=== PATIENT | female | born 1985 | race Two or more races ===

== ENCOUNTER 2018-11-03 12:50 | Emergency (ER) | payer SELFPAY ==
[~2018-11-03] VITALS: Ht 167.6 cm; Wt 89.9 kg
[2018-11-03 13:30] VITALS: BP 144/84
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
[2018-11-03] MEDS ORDERED: ONDANSETRON ODT 4 MG PO ONE (14:00)
[2018-11-03] MEDS ORDERED: HYDROcodone/APAP 5/325 TABLET PO ONE (14:00)
[2018-11-03] MEDS ORDERED: HYDROcodone/APAP 5/325 TABLET ONE (14:35)
[2018-11-03] MEDS ORDERED: ONDANSETRON ODT 4 MG ONE (14:35)
--- NOTE | 2018-11-03 14:38 | NUR ---
PT MEDICATED PER EMAR FOR PAIN
--- NOTE | 2018-11-03 15:24 | NUR ---
Patient/Caregiver given discharge instructions and they have confirmed that they understand the instructions. Patient ambulatory with steady gait. FAST EXAM COMPLETED AT BEDSIDE.
== END 2018-11-03 15:26 | disposition home or self-care (01) ==
LOC: ED 15:20
DX: R07.89 Other chest pain (principal); F17.200 Nicotine dependence, unspecified, uncomplicated; Z88.5 Allergy status to narcotic agent; V49.59XA Passenger injured in collision with other motor vehicles in traffic accident, initial encounter; Y93.89 Activity, other specified; Y92.89 Other specified places as the place of occurrence of the external cause; Y99.8 Other external cause status
CPT/HCPCS: 71101; 99283; Q0162

== ENCOUNTER 2018-11-22 06:06 | Emergency (ER) | payer SELFPAY ==
[~2018-11-22] VITALS: Ht 170.2 cm; Wt 89.9 kg
--- NOTE | 2018-11-22 06:22 | NUR ---
CONTIUOUS MONITORING, SIGNIFICANT OTHER AT BEDSIDE.
--- NOTE | 2018-11-22 06:37 | NUR ---
AWAKEN VERBAL, SIGNIFICANT OTHER AT BEDSIDE, CONTINUOUS SPO2 MONITOR.
--- NOTE | 2018-11-22 06:40 | NUR ---
PT QUESTIONED PRIVATELY TO IF THIS WAS AN ATTEMPT TO HARM HERSELF WITH THIS EPISODE, PT DENIES, SIGNIFICANT OTHER BACK TO ROOM. HE IS VERY CONCERNED ABOUT PT.
--- NOTE | 2018-11-22 07:10 | NUR ---
REC BS REPORT PT REFUSING XR AT THIS TIME
[2018-11-22 07:30] VITALS: BP 132/74
--- NOTE | 2018-11-22 07:45 | NUR ---
PT DEMANDING TO BE DCD
== END 2018-11-22 07:55 | disposition home or self-care (01) ==
LOC: ED 07:51
DX: F11.129 Opioid abuse with intoxication, unspecified (principal)
CPT/HCPCS: 82962; 93005; 99283